=== PATIENT | male | born 1990 ===

== ENCOUNTER 2023-02-17 13:24 | Emergency (ER) | payer SELFPAY ==
[~2023-02-17] VITALS: Ht 175.3 cm; Wt 134.2 kg
[2023-02-17 14:59] VITALS: BP 123/84
[2023-02-17] MEDS ORDERED: cefTRIAXone SOD 1,000 MG VL IM ONE ×2 (15:45)
[2023-02-17] MEDS ORDERED: BACDST PO (16:18)
[2023-02-17] MEDS ORDERED: CEPH-510 PO (16:18)
[2023-02-17] MEDS ORDERED: IBUP800T27 PO (16:18)
== END 2023-02-17 16:39 | disposition home or self-care (01) ==
LOC: ER 13:24
DX: S30.861A Insect bite (nonvenomous) of abdominal wall, initial encounter (principal); W57.XXXA Bitten or stung by nonvenomous insect and other nonvenomous arthropods, initial encounter; Y93.89 Activity, other specified; Y92.89 Other specified places as the place of occurrence of the external cause; Y99.8 Other external cause status
CPT/HCPCS: 96372; 99284; J0696

== ENCOUNTER 2023-02-21 13:28 | Emergency (ER) | payer SELFPAY ==
[~2023-02-21] VITALS: Ht 172.7 cm; Wt 136.4 kg
[~2023-02-21 13:28] MED LIST: BACDST PO; CEPH-510 PO; IBUP-1456 PO
[2023-02-21 14:58] VITALS: BP 147/81
[2023-02-21] MEDS ORDERED: cefTRIAXone SOD 1,000 MG VL IM ONE (15:30)
[2023-02-21] MEDS ORDERED: MUPI2OIN2 EX (15:30)
[2023-02-21] MEDS ORDERED: AMPICILLIN & SULBACTAM SODIUM 3 GM in SODIUM CHL 0.9% 100 ML IV SCH (16:00)
== END 2023-02-21 15:39 | disposition home or self-care (01) ==
LOC: ER 13:28
DX: L02.214 Cutaneous abscess of groin (principal)